=== PATIENT | male | born 1990 | race Caucasian/White ===

== ENCOUNTER 2020-03-14 10:26 | Emergency (ER) | payer MEDICAID ==
[~2020-03-14] VITALS: Ht 193 cm; Wt 158.8 kg
[2020-03-14 10:37] VITALS: BP 136/85
[2020-03-14] MEDS ORDERED: KETOROLAC TROMETH 60MG/2ML VIAL IM ONE (11:15)
== END 2020-03-14 11:31 | disposition home or self-care (01) ==
LOC: ER 10:26
DX: S33.5XXA Sprain of ligaments of lumbar spine, initial encounter (principal); X58.XXXA Exposure to other specified factors, initial encounter; Y93.89 Activity, other specified; Y92.89 Other specified places as the place of occurrence of the external cause; Y99.8 Other external cause status
CPT/HCPCS: 72100; 96372; 99283; J1885